=== PATIENT | male | born 1930 | race Caucasian/White ===

== ENCOUNTER → 2018-07-29 | Outpatient (CLI) | payer OTHER, MEDICARE | LOC: BMCIMAGING 09:24 | PROVIDERS: ATTEND Family Medicine | DX: M24.851 Other specific joint derangements of right hip, not elsewhere classified (principal) ==

== ENCOUNTER 2018-11-09 05:29 | Observation (INO) | payer OTHER, MEDICARE ==
[2018-11-09] MEDS ORDERED: ACETAMINOPHEN 500 MG TAB PO ONE (06:03)
[2018-11-09] MEDS ORDERED: ceFAZolin 2 GM/DEXTROSE 100 ML IV ONE (06:03)
[2018-11-09] MEDS ORDERED: LR 1,000 ML IV ONE (06:04)
--- NOTE | 2018-11-09 06:35 | PDANEPAE ---
ANE Past Medical History - Cardiovascular History Hx Hypertension: Yes Hx Arrhythmias: No Hx Chest Pain: No Hx Coronary Artery / Peripheral Vascular Disease: Yes Hx CHF / Valvular Disease: No Hx Palpitations: No Cardiovascular History Comment: 2 STENTS TO PROXIMAL lad. NO ISSUES SINCE - Pulmonary History Hx COPD: No Hx Asthma/Reactive Airway Disease: No Hx Recent Upper Respiratory Infection: No Hx Oxygen in Use at Home: No Hx Sleep Apnea: No Sleep Apnea Screening Result - Last Documented: Negative Pulmonary History Comment: Trach is seasoned 5 1/2 - 6 peds ETT recommended by daughter - Neurologic History Hx Cerebrovascular Accident: No Hx Seizures: No Hx Dementia: No - Endocrine History Hx Diabetes: No - Renal History Hx Renal Disorders: No - Liver History Hx Hepatic Disorders: No - Neurological & Psychiatric Hx Hx Neurological and Psychiatric Disorders: Yes Neurological / Psychiatric History Comment: WEAKNESS MOTOR LOSS RIGHT LEG - Cancer History Hx Cancer: Yes Cancer History Comment: LARYNGEAL - Congenital Disorder History Hx Congenital Disorders: No - GI History Hx Gastrointestinal Disorders: No - Other Health History 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 RADICAL NECK 1960. stent to LAD distant. Trach revision 10yrs ago ANE Review of Systems Review of Systems: - Exercise capacity METS (RN): 4 METS ANE Patient History - Allergies Allergies/Adverse Reactions: Penicillins Allergy (Verified 11/05/18 13:39) Hives - Home Medications Home Medications: Aspirin [Aspirin 325 mg (*)] 325 mg PO DAILY 11/05/18 [Last Taken 2 Weeks Ago ~ 10/26/18] Brimonidine 0.2% [ALPHAGAN 0.2% (RX)] 1 drops EACHEYE BID 11/05/18 [Last Taken 11/08/18] Gabapentin [Neurontin 100 MG (*)] 200 mg PO BID 11/05/18 [Last Taken 11/08/18] Ibuprofen [Motrin (*)] 400 mg PO Q6HRS PRN 11/05/18 [Last Taken 2 Weeks Ago ~04/06] Losartan Potassium [Cozaar 50 mg (*)] 50 mg PO DAILY 11/05/18 [Last Taken ] [place]-3 Fatty Acids [Fish Oil 1000 mg (*)] 1,000 mg PO DAILY 11/05/18 [Last Taken 2 Weeks Ago ~10/26/18] Tamsulosin HCl [Flomax 0.4 MG (*)] 0.4 mg PO DAILY 11/05/18 [Last Taken 11/08/18 ] - NPO status NPO Since - Liquids (Date): 11/08/18 NPO Since - Liquids (Time): 21:00 NPO Since - Solids (Date): 11/08/18 NPO Since - Solids (Time): 17:00 - Smoking Hx Smoking Status: Former smoker - Family Anes Hx Family Hx Anesthesia Complications: NONE ANE Labs/Vital Signs - Vital Signs Height: 175.26 cm Weight: 71.214 kg ANE Physical Exam - Airway Mallampati Score: Unable to assesss (Mature Trach.) - Pulmonary Pulmonary: no respiratory distress, no rales or rhonchi - Cardiovascular Cardiovascular: regular rate and rhythym, no murmur, rub, or gallop - ASA Status ASA Status: III ANE Anesthesia Plan Anesthesia Plan: general endotracheal anesthesia
[2018-11-09] MEDS ORDERED: DEXAMETHASONE 4 MG/ML VIAL ONE (06:40)
[2018-11-09] MEDS ORDERED: ROCURONIUM 50 MG/5 ML VIAL ONE (06:40)
[2018-11-09] MEDS ORDERED: ONDANSETRON 4 MG/2 ML VIAL ONE (06:40)
[2018-11-09] MEDS ORDERED: PROPOFOL 200 MG/20 ML VIAL ONE ×2 (06:40→08:26)
[2018-11-09] MEDS ORDERED: fentaNYL 100 MCG/2 ML INJ ONE (06:40)
[2018-11-09] MEDS ORDERED: LIDOCAINE 2% 2 ML INJ ONE (06:40)
[2018-11-09] MEDS ORDERED: PROPOFOL/EMULSION 500 MG/50 ML BOTTLE IV ONE ×3 (06:40→08:26)
[2018-11-09] MEDS ORDERED: CHLORHEXIDINE GLUC HIBICLENS 118 ML BTL TP ONE (06:52)
[2018-11-09] MEDS ORDERED: THROMBIN (BOVINE) 20,000 UNIT VIAL TP ONE (06:52)
[2018-11-09] MEDS ORDERED: BACITRACIN 50,000 UNITS/10 ML SYR IRR ONE (06:53)
[2018-11-09] MEDS ORDERED: BUPIVACAINE/EPI 0.25% 30 ML SDV ONE (06:53)
--- NOTE | 2018-11-09 06:53 | PDHPUP ---
History & Physical Update H&P update statement: This history and physical update is based on an assessment of the patient which was completed after admission or registration (within 24 hours), but prior to the surgery/procedure. H&P update: H&P reviewed & patient examined, no change in patient's condition since H&P completed (Consents signed and site marked. All questions answered. Increased risks and complications discussed (ie CSF leak, airway issues) and they are willing to proceed.)
[2018-11-09] MEDS ORDERED: PROMETHAZINE HCL 25 MG/ML INJ IVP PRN (07:56)
[2018-11-09] MEDS ORDERED: LR 500 ML IV PRN (07:56)
[2018-11-09] MEDS ORDERED: fentaNYL 100 MCG/2 ML INJ IVP PRN (07:56)
[2018-11-09] MEDS ORDERED: oxyCODONE IR 5 MG TAB PO PRN ×2 (07:56→08:08)
[2018-11-09] MEDS ORDERED: MEPERIDINE 25 MG/0.5 ML AMP IVP PRN (07:56)
[2018-11-09] MEDS ORDERED: ONDANSETRON 4 MG/2 ML VIAL IVP PRN (07:56)
[2018-11-09] MEDS ORDERED: HYDROmorphONE/DILAUDID 1 MG/ML INJ IVP PRN (07:56)
[2018-11-09] MEDS ORDERED: NALOXONE HCL 0.4 MG/ML INJ IVP PRN (07:56)
[2018-11-09] MEDS ORDERED: ALBUTEROL 3 ML DEYVIAL IH PRN (07:56)
[2018-11-09] MEDS ORDERED: PHENYLEPHRINE HCL 100 MCG/ML SYR IVP PRN (07:56)
[2018-11-09] MEDS ORDERED: NS 500 ML IV PRN (07:56)
[2018-11-09] MEDS ORDERED: ACETAMINOPHEN 500 MG TAB PO PRN (07:56)
[2018-11-09] MEDS ORDERED: METOCLOPRAMIDE 10 MG/2 ML VIAL IVP PRN (07:56)
--- NOTE | 2018-11-09 07:56 | POSTANESTH ---
Post Anesthetic Evaluation Cardiovascular Status: Normal, Stable Respiratory Status: Normal, Stable Level of Consciousness/Mental Status: Can Participate in Eval Pain Control: Adequate, Prn Tx Ordered Nausea/Vomiting Control: Adequate, Prn Tx Ordered Complications Possibly Related to Anesthesia: None Noted
[2018-11-09] MEDS ORDERED: ePHEDrine SULFATE 25 MG/5 ML SYR ONE (07:57)
[2018-11-09] MEDS ORDERED: PHENYLEPHRINE HCL 100 MCG/ML SYR ONE ×3 (07:58→08:40)
[2018-11-09] MEDS ORDERED: BISACODYL 10 MG SUPP PR PRN (08:08)
[2018-11-09] MEDS ORDERED: ONDANSETRON DISINTEGRATING 4 MG TAB PO PRN (08:08)
[2018-11-09] MEDS ORDERED: LACTULOSE 20 GM/30 ML UDCUP PO PRN (08:08)
[2018-11-09] MEDS ORDERED: MAGNESIUM HYDROXIDE 30 ML UDCUP PO PRN (08:08)
[2018-11-09] MEDS ORDERED: diphenhydrAMINE 25 MG CAP PO PRN (08:08)
[2018-11-09] MEDS ORDERED: POLYETHYLENE GLYCOL 3350 17 GM PKT PO PRN (08:08)
[2018-11-09] MEDS ORDERED: METHOCARBAMOL 750 MG TAB PO PRN (08:08)
[2018-11-09] MEDS ORDERED: NS 1,000 ML IV SCH (08:15)
--- NOTE | 2018-11-09 09:27 | POSTOPPROG ---
Post Op Note Date of Operation: 11/09/18 Surgeon: Arnel Uriostegui Ancillary Specialist: Kae Velásquez NP Anesthesia: GET(General Endotracheal) Pre-op Diagnosis: Lumbar stenosis Procedure: L4-5 laminectomy Inf/Abcess present in the surg proc area at time of surgery?: No Depth: Deep Incisional (Fascial) EBL: Minimal Total fluids administered: see anesthesia Complications: none Date of Surgery: 11/09/18 Post Op Day: 0 Assessment/Plan: Assessment: 88 yr old male s/p L4-5 laminectomy Plan: -Admit ortho/neuro for obs -Case management to eval for dispo-patient was already in rehab prior to surgery and will need to return to facility -PT/OT -Pain management -Call with questions/concerns Subjective: waking up in pacu Objective: waking up in pacu Oxygen flowing over stoma site MAEx4 Dressing CDI Appropriate Neuro Check Frequency Ordered: Yes
--- NOTE | 2018-11-09 10:46 | PDHOMEO2F ---
Home Oxygen Face to Face Home Orders: I certify that a physician or a nurse practitioner or physician's casino assistant manager has had a [id number] encounter with this patient on the date of this order due to the diagnosis listed, which relates to the primary reason the patient requires home oxygen. Alternative treatments have been tried, or considered, and deemed ineffective. It is anticipated that supplemental oxygen will result in improvement with treatment. Home oxygen qualifying diagnosis: hypoxia SpO2 on room air (%): 88% day 85% nocturnal Frequency of home oxygen needed: during sleep Home oxygen liters per minute: 1-2 Home oxygen delivery device: nasal cannula Concentrator: Yes E-tanks for mobility and back up: Yes If ordering portable O2, is the patient mobile in the home?: Yes I certify that, based on these findings, the home oxygen is medically necessary for this patient for the following length of time. Length of time home oxygen needed: 1 month Home Oxygen Comment: Follow up with PCP to manage oxygen
[2018-11-09] MEDS: BRIMONIDINE 0.2% 5 ML OPHT.BTL EACHEYE SCH ×2 (12:38→22:09)
[2018-11-09] MEDS: SENNOSIDES/DOCUSATE SODIUM TAB PO SCH ×2 (12:38→21:05)
[2018-11-09] MEDS: FAMOTIDINE 20 MG TAB PO SCH ×2 (12:38→21:05)
[2018-11-09] MEDS: TAMSULOSIN HCL 0.4 MG CAP PO SCH (12:38)
[2018-11-09] MEDS: LOSARTAN POTASSIUM 50 MG TAB PO SCH (12:38)
[2018-11-09] MEDS: GABAPENTIN 100 MG CAP PO SCH ×2 (12:38→21:05)
[2018-11-09] MEDS: ceFAZolin 2 GM/DEXTROSE 100 ML IV SCH ×2 (15:55→23:44)
--- NOTE | 2018-11-09 16:03 | GOP ---
[f rep st] OPERATIVE REPORT DATE OF OPERATION: 11/09/2018 SURGEON: Arnel Uriostegui MD FICTION AND NONFICTION PROSE WRITER: Service Desk Specialist Kae Velásquez NP. ANESTHESIA: General. PREOPERATIVE DIAGNOSIS: 1. Right-sided L4-L5 recurrent stenosis with progressive right lower extremity radiculopathy. 2. History of prior left-sided L4-L5 decompression and lateral recess decompression. 3. Treatment refractory to nonoperative now intervention. POSTOPERATIVE DIAGNOSIS: 1. Redo L4-L5 decompression with right-sided medial facetectomy and epidural lesion resection with n erve decompression. 2. Use of intraoperative fluoroscopy, less than 1 hour physician time. 3. Use of neuromonitoring. 4. Use of operating microscope. PROCEDURE PERFORMED: 1. Redo L4-L5 decompression with right-sided medial facetectomy and epidural lesion resection with n erve decompression. 2. Use of intraoperative fluoroscopy, less than 1 hour physician time. 3. Use of neuromonitoring. 4. Use of operating microscope. FINDINGS: SPECIMENS: None. ESTIMATED BLOOD LOSS: 50 mL. INDICATIONS: The patient an 88-year-old gentleman who has undergone a prior left-sided decompression of L4-5 and presented to the hospital with worsening back pain and right lower extremity weakness. Imaging studies consistent with a right-sided stenosis in the lateral recess and hypertrop hy. After discussion of the risks, benefits, and treatment alternatives, the patient opted to procee d forth with surgery as described above. DESCRIPTION OF PROCEDURE: Patient was brought to the operating theater and underwent general anesthe boby without complications. Venodynes, CHASITY hose, and appropriate lines were placed by Anesthesia. He was then flipped prone on the Howie frame. All bony prominences processes padded for surgery promi nences were inspected and padded. The patient was then flipped prone onto a Howie frame and all bon y prominences inspected and padded. The lower lumbar region including his prior lumbar incision, was identified and prepped and draped in the usual sterile surgical fashion. A time-out was completed p er protocol and the patient received antibiotics within 1 hour of incision. The incision was infiltrated with Marcaine with epinephrine. The incision was taken down with a scal pel blade. Using monopolar, it was then taken down midline through the lumbodorsal fascia at L4-5 an d a subperiosteal dissection carried to the facet joints of L4-5. Care was taken to avoid the previous left-sided L4-5 hemilaminotomy defect. The microscope was brought into field to assist with microscopic dissection and maintain illumination and magnification. After confirming our level , we complete used a Leksell rongeur, bur tip on the drill bit, and Kerrison punches to complete a re do L4-L5 decompressive laminectomy. He had a very compressive lesion on the right side emanating fro m the right facet joint which appeared to be fibrous in nature and bone. We resected this and we fel t the entire right side was well decompressed on manual palpation. We obtained hemostasis with the b ipolar. The wound was irrigated copiously with bacitracin irrigation. We then closed the wound in m ultiple layers with Vicryl sutures, the deep layers and Dermabond for the skin. The patient's wounds were dressed sterilely. He was then flipped supine onto the transfer cart. He was awakened, extuba chasity, and taken to the recovery room in stable condition. There were no complications and no noted ch anges on neuromonitoring throughout the procedure. COMPLICATION: None. COMPLICATIONS: None. /[id number]/MODL
--- NOTE | 2018-11-09 16:05 | ASMTCMCOM ---
CM Note CM Note Notes: Pt came from [facility] for a planned L4-5 TLIF. Pt to return to [facility] for more rehab. Chikis with [employer] assures CM pt has met Medicare requirements for SNF payment prior to this d/c and is approved to return using Medicare days. PT/OT evals pending. Pt likely ready for d/c tomorrow. WC transport is pre-arranged for 12:00 tomorrow, ALIN Velásquez updated. Pt jakub Justice ([phone]) is involved in pt care, she is updated by phone. D/c plan: Back to [facility] tomorrow if medically stable Date Signed: 11/09/2018 04:04 PM Electronically Signed By:ONEIL Cruz
[2018-11-10 05:20] LABS: PLATELET COUNT 186 10^3/uL (150-400)
[2018-11-10 08:00] VITALS: BP 152/95
[2018-11-10] MEDS: FAMOTIDINE 20 MG TAB PO SCH (08:17)
[2018-11-10] MEDS: GABAPENTIN 100 MG CAP PO SCH (08:17)
[2018-11-10] MEDS: TAMSULOSIN HCL 0.4 MG CAP PO SCH (08:17)
[2018-11-10] MEDS: LOSARTAN POTASSIUM 50 MG TAB PO SCH (08:20)
[2018-11-10] MEDS: SENNOSIDES/DOCUSATE SODIUM TAB PO SCH (08:20)
[2018-11-10] MEDS: BRIMONIDINE 0.2% 5 ML OPHT.BTL EACHEYE SCH (08:21)
[2018-11-10] MEDS ORDERED: ENOXAPARIN 40 MG/0.4 ML SYR SC SCH (09:00)
--- NOTE | 2018-11-10 09:47 | NEUSURGPN ---
Assessment/Plan: 88M s/p L45 lami. neuro intact, leg pain improved plan for back to rehab later today. pain control dw Dr. Uriostegui Subjective: doing well. back pain well controlled. leg pain improved. can lift right leg again. ready to have a BM Objective: up in chair, AAOx3 NAD cnii-xii grossly intact speech clear MAEx4, 5/5 slight difference in right compared to left but still strong SILT INcision dressed, CDI. - Physician Discussed Patient with : [facility] Physical Exam - Vitals, I&O, Labs I and O 11/09/18 11/10/18 11/11/18 05:59 05:59 05:59 Intake Total 2250 1000 Output Total 620 300 Balance 1630 700 Weight 71.214 kg Intake: Oral (ml) 1050 IV Intake (ml) 1000 IV Infused (ml) 200 1000 Ns 1,000 ml @ 75 mls/hr 900 IV CONT MITCH Rx#: [id number] ceFAZolin 2 GM/DEXTROSE 200 100 ml @ 200 mls/hr IV ONCALL ONE Rx#:[id number] ceFAZolin 2 GM/DEXTROSE 100 100 ml @ 200 mls/hr IV Q8H MITCH Rx#:[id number] Output: Urine (ml) 600 300 Urinal 600 300 Estimated Blood Loss (ml) 20 Emesis (ml) 0 Other: Intake Quantity Yes Sufficient Number of Voids Incontinence 1 Urinal 1 1 Vital Signs Temp Pulse Resp BP Pulse Ox 36.9 C 57 L 16 152/95 H 90 L 11/10/18 07:59 11/10/18 07:59 11/10/18 07:59 11/10/18 07:59 11/10/18 07:59 Laboratory Results 11/10/18 04:48 11/10/18 04:48 ICD10 Worksheet Patient Problems: Problems Problem Status Onset Lumbar spinal stenosis Acute - ICD10 Problem Qualifiers (1) Lumbar spinal stenosis Qualifiers: Neurogenic claudication status: unspecified Qualified Code(s): M48.061 - Spinal stenosis, lumbar region without neurogenic claudication
--- NOTE | 2018-11-10 09:55 | PDIAF ---
- Diagnosis Diagnosis: lumbar spondylosis with radiculopathy Code Status: Full Code - Medication Management Additional Medication Instructions: do not restart Aspirin until Monday, POD#3 Discharge Medications: electronically signed and located in the Home Medication List. PIC Care - Routine: N/A - Orders Services needed: Registered Nurse, Certified Seam Stayer, Physical Therapy, Occupational Therapy Diet Recommendation: no restrictions on diet Diet Texture: Regular Texture Diet Rodriguez: Not applicable Wound Care Instructions: change dressing if saturated, notifiy provider. Remove to shower. OK to allow wound to get wet during showers. Activity/Weight Bearing Restrictions: no bending, twisting, lifting >15lbs Additional Instructions: please include bna dc instructions for laminectomy. No baths or soaking for 2 weeks you may shower daily and allow water to run across your wound you may restart your Aspirin on Monday continue stool softeners as needed while on pain medications take oxycodone, motrin, tylenol for pain, robaxin for spasms. no bending twisting lifting >15 lbs. - Follow Up Care Current Providers and Referrals: COLLIN GAMBINO [Primary Care Provider] -
--- NOTE | 2018-11-10 10:14 | ASMTLACE ---
DIANA Length of stay for Answers: 1 day current admission Acuity / Level of Answers: No Care: Did the patient have an inpatient admission? # of Emergency department Answers: 0 visits in the last 6 months Score: 1 Date Signed: 11/10/2018 10:13 AM Electronically Signed By:Lilian Randle
--- NOTE | 2018-11-10 10:18 | ASDISCHSUM ---
Discharge Information Plan Status:SNF Medically Cleared to Leave: Discharge Date: D/C Disposition:Nursing Home Facility [facility] D/C Disposition:Other Rehab, Not [facility]vel[facility] Projected Discharge Date:11/10/2018 11:00 AM Transportation at D/C: Discharge Delay Reason: Follow-Up Date:11/10/2018 11:00 AM Discharge Slot: Final Diagnosis: Placement Information Referral Type:*Halfway/SNF Referral ID:[id number] Provider Name:Edison cardoza [place] Address 1:[address] [facility] [address] [facility] Address 2: City:[place] Selection Factors: State:[place] Patient Contact Information Contact Name:GERARDO Relationship:Daughter Address: Work Phone: City: [facility] Phone: [facility] Code: Email: Financial Information Financial Class:Medicare Primary Plan Desc:MEDICARE OUTPATIENT Primary Plan Number:[id number] Secondary Plan Desc:[employer]ARP/MDR SUPPLEMENT Secondary Plan Number:[id number] Assessment Information [facility] CM Progress Note CM Note CM Note Notes: Pt came from [facility] for a planned L4-5 TLIF. Pt to return to [facility] for more rehab. Chikis with [employer] assures CM pt has met Medicare requirements for SNF payment prior to this d/c and is approved to return using Medicare days. PT/OT abdi pending. Pt likely ready for d/c tomorrow. WC transport is pre-arranged for 12:00 tomorrow, ALIN Velásquez updated. Pt jakub Justice ([phone]) is involved in pt care, she is updated by phone. D/c plan: Back to [facility] tomorrow if medically stable Date Signed: 11/09/2018 04:04 PM Electronically Signed By:ONEIL Cruz LACE LACE Length of stay for Answers: 1 day current admission Acuity / Level of Answers: No Care: Did the patient have an inpatient admission? # of Emergency department Answers: 0 visits in the last 6 months Score: 1 Date Signed: 11/10/2018 10:13 AM Electronically Signed By:Lilian Randle Case Management Discharge Plan Note Case Management Discharge Discharge Order Complete? Answers: Yes Patient to Obtain Answers: Other Notes: [facility] [place] Medications Transportation Arranged Answers: Other Notes: [employer] will filler picker Discharge Comments Notes: CM met with pt to let him know transport time. RN was given number for report [facility] will be picking up pt at 12 noon. Date Signed: 11/10/2018 10:15 AM Electronically Signed By:Lilian Randle Intervention Information Intervention Type:*Incorrect Registration Date of Service:11/09/2018 01:14 PM Patient Type:Inpatient Staff Member:ROSENDA Espinoza, Candelaria Hours: Discipline: Severity: Comment:
--- NOTE | 2018-11-13 09:24 | GDS ---
[f rep st] DISCHARGE SUMMARY DIAGNOSIS: Spondylolisthesis, lumbar region. Spondylosis with radiculopathy of lumbar region and we akness. SERVICE: Neurosurgery PROCEDURES: L4-5 decompression and right-sided medial facetectomy and epidural lesion resection. HOSPITAL COURSE: A pleasant 88-year-old gentleman who was admitted from the rehab facility, who has currently been wheelchair-bound due to weakness and pain in his right leg and inability to stand. We akness was thought to originate from a L4-5 spinal stenosis. He was taken to the OR pre-procedure wi thout complication. See full operative report for details and was admitted to observation in the [facility] postprocedure given his advanced age. He was monitored overnight and was doing quite well. In fact, he was able to lift his leg up for the first time and felt more ambulatory than he had been in weeks. He was discharged back to his rehab facility postop day 1. Please see progress notes for ph ysical exam. Please see discharge form for medications and postoperative instructions also in his aisha carlton paperwork. The patient will follow up in [address] Uriostegui for postoperative wound vangie ck. /[id number]/MODL
== END 2018-11-10 12:20 ==
LOC: F3N 05:29 → INTOOBSV 05:29 → F2N 08:45 → F3N 08:53
PROVIDERS: ADMIT Neurological Surgery; ATTEND Neurological Surgery
PROC: 01NB0ZZ Release Lumbar Nerve, Open Approach (ICD-10-PCS; principal; 2018-11-09 07:15)
DX: M47.26 Other spondylosis with radiculopathy, lumbar region (principal); I10 Essential (primary) hypertension; I25.10 Atherosclerotic heart disease of native coronary artery without angina pectoris; Z95.5 Presence of coronary angioplasty implant and graft; Z85.21 Personal history of malignant neoplasm of larynx; Z93.0 Tracheostomy status
CPT/HCPCS: 63042; 76000; 97161; 97165; J0690; J1100; J1650; J2370; J2405; J2704; J3010